=== PATIENT | female | born 1965 | race Caucasian/White ===

== ENCOUNTER 2020-05-18 19:55 | Emergency (ER) | payer OTHER ==
[~2020-05-18] VITALS: Ht 167.6 cm; Wt 98.9 kg
[~2020-05-18 19:55] MED LIST: BACTRIM DS TAB1 EACH PO; CELEXA 20 MG TA20 M1 PO; DIFLUCAN150 MG PO; GLUCOPHAGE500 MG PO; HYDROCODON-ACE1 EAC7 PO; LIORESAL 10 MG10 MG PO; NEURONTIN 300300 M1 PO; NITROFURANTOIN100 MG PO; NORCO 5-325 TA1 EACH PO; NORCO 7.5-3251 EACH PO; PHENAZOPYRIDIN200 M2 PO; RITALIN20 MG PO; ZESTRIL20 MG PO
[2020-05-18] MEDS ORDERED: FLONASE 0.05%50 MCG NARES (20:14)
[2020-05-18] MEDS ORDERED: AMITRIPTYLINE100 MG PO (20:15)
[2020-05-18] MEDS ORDERED: HYDROCHLOROTHIA25 M2 PO (20:15)
[2020-05-18] MEDS ORDERED: LIPITOR40 MG PO (20:15)
[2020-05-18] MEDS ORDERED: MOBIC7.5 MG PO (20:16)
[2020-05-18] MEDS ORDERED: FLEXERIL PO (20:16)
[2020-05-18 21:07] LABS: ABSOLUTE EOSINOPHILS 0.2 thou/uL (0.0-0.7); ABSOLUTE LYMPHOCYTES 2.5 thou/uL (0.8-5.3); ABSOLUTE MONOCYTES 0.5 thou/uL (0.0-1.2); ABSOLUTE NEUTROPHILS 2.4 thou/uL (1.6-8.1); BASOPHILS 0.9 %; EOSINOPHILS 3.3 %; HEMATOCRIT 31.9 % (37.0-47.0); HEMOGLOBIN 10.7 gm/dL (12.0-15.0); LYMPHOCYTES 44.5 %; MCH 27.9 pg (26.0-34.0); MCHC 33.5 g/dL (28.0-37.0); MCV 83.3 fL (80.0-100.0); MONOCYTES 8.3 %; MPV 6.8 fl. (7.2-11.1); NUCLEATED RBCS 0 /100WBC; PLATELET COUNT* 330 thou/uL (150-400); RBC 3.83 mil/uL (4.20-5.00); RDW-CV 16.5 % (10.5-14.5); WBC 5.6 thou/uL (4.0-11.0)
[2020-05-18 21:15] LABS: CREATININE 0.9 mg/dL (0.6-1.3); POTASSIUM 3.4 mmol/L (3.5-5.1)
[2020-05-18 21:19] LABS: APTT 22.8 Seconds (25.0-31.3); PROTIME 10.2 Seconds (9.20-11.50)
[2020-05-18 21:20] LABS: ALBUMIN 3.4 g/dL (3.4-5.0); TOTAL BILIRUBIN 0.4 mg/dL (<0.1-1.0); TOTAL PROTEIN 6.6 g/dL (6.4-8.2)
[2020-05-18 23:03] VITALS: BP 133/82
--- NOTE | 2020-05-19 14:07 | EKG ---
[place] [address] ELECTROCARDIOGRAM REPORT Name: NORMA VERAS Room: [facility]#: [id number] Admission: 05/18/20 Attend Phys: Discharge: 05/18/20 Date of : 63 Date of Service: 05/18/202002 Report #: [id number] THIS REPORT FOR: //name// [facility] ED Test Date: 2020-05-18 Test Time: 20:03:52 Pat Name: NROMA VERAS Department: Room: Gender: [employer] [place]: [place] : 1965 Requested By: Oralia Paredes Order Number: [id number] MD: Sergio Smith Measurements Intervals [place] Rate: 92 P: 59 NM: 151 QRS: 15 QRSD: 100 T: 33 QT: 377 QTc: 467 Interpretive Statements Sinus rhythm Compared to ECG 03/06/2009 09:53:15 No significant changes Electronically Signed On 05-19-2020 14:07:19 [facility] by Sergio Smith [email or web address] <ELECTRONICALLY SIGNED> By: Ciera Smith MD, [facility] 05/19/20 1407 02 02 Ciera Smith MD, [facility] /EPI
== END 2020-05-18 23:03 | disposition home or self-care (01) ==
LOC: M.ERS 19:55
PROVIDERS: Personal Emergency Response Attendant
DX: M71.22 Synovial cyst of popliteal space [Baker], left knee (principal); R07.9 Chest pain, unspecified; I10 Essential (primary) hypertension; E11.9 Type 2 diabetes mellitus without complications; F17.210 Nicotine dependence, cigarettes, uncomplicated; Z79.899 Other long term (current) drug therapy

== ENCOUNTER 2020-08-20 16:46 | Emergency (ER) | payer OTHER ==
[~2020-08-20] VITALS: Ht 167.6 cm; Wt 98.9 kg
[~2020-08-20 16:46] MED LIST changes: +AMITRIPTYLINE100 MG PO; +FLEXERIL PO; +FLONASE 0.05%50 MCG NARES; +HYDROCHLOROTHIA25 M2 PO; +LIPITOR40 MG PO; +MOBIC7.5 MG PO
[2020-08-20] MEDS ORDERED: VOLTAREN GEL 1100 G1 TOP (17:01)
[2020-08-20] MEDS ORDERED: NARCAN4 MG NARES (17:02)
[2020-08-20] MEDS ORDERED: NORCO5 PO (17:08)
[2020-08-20 17:20] VITALS: BP 170/94
== END 2020-08-20 17:22 | disposition home or self-care (01) ==
LOC: M.ERS 16:46
DX: G89.29 Other chronic pain (principal); M25.562 Pain in left knee; M54.5 Low back pain; I10 Essential (primary) hypertension; E11.9 Type 2 diabetes mellitus without complications; F17.210 Nicotine dependence, cigarettes, uncomplicated

== ENCOUNTER 2021-02-21 15:41 | Emergency (ER) | payer OTHER ==
[~2021-02-21] VITALS: Ht 167.6 cm; Wt 97.5 kg
[~2021-02-21 15:41] MED LIST changes: +NARCAN4 MG NARES; +NORCO5 PO; +VOLTAREN GEL 1100 G1 TOP
[2021-02-21 17:08] VITALS: BP 150/68
== END 2021-02-21 17:11 | disposition home or self-care (01) ==
LOC: M.ERS 15:41
DX: G89.29 Other chronic pain (principal); M54.5 Low back pain; I10 Essential (primary) hypertension; E11.9 Type 2 diabetes mellitus without complications; F17.210 Nicotine dependence, cigarettes, uncomplicated; Z79.899 Other long term (current) drug therapy